=== PATIENT | female | born 2000 | race Caucasian/White ===

== ENCOUNTER 2024-06-16 08:59 | Emergency (ER) | payer OTHER ==
[~2024-06-16] VITALS: Ht 154.9 cm; Wt 90.7 kg
[~2024-06-16 08:59] MED LIST: CEPH500 PO; DOXY100 PO; VRAYLAR1.5 MG PO
[2024-06-16 10:23] LABS: BASOPHILS ABSOLUTE AUTO 0.05 K/mm3 (0.00-0.23); BASOPHILS PERCENT AUTO 1 % (0-2); EOSINOPHILS ABSOLUTE AUTO 0.09 K/mm3 (0.00-0.68); EOSINOPHILS PERCENT AUTO 1 % (0-6); Hematocrit 47.3 % (33.0-51.0); Hemoglobin 15.6 g/dL (11.5-16.0); IMMATURE GRAN ABSOLUTE AUTO 0.03 K/mm3 (0.00-0.10); IMMATURE GRAN PERCENT AUTO 0 % (0-1); LYMPHOCYTES ABSOLUTE AUTO 4.09 K/mm3 (0.84-5.20); LYMPHOCYTES PERCENT AUTO 43 % (21-46); MONOCYTES ABSOLUTE AUTO 0.51 K/mm3 (0.16-1.47); MONOCYTES PERCENT AUTO 5 % (4-13); Mean Corpuscular HGB 27.1 pg (26.0-34.0); Mean Corpuscular Volume 82 fL (80-100); Mean Platelet Volume 10.2 fL (9.1-12.4); NEUTROPHILS ABSOLUTE AUTO 4.81 K/mm3 (1.96-9.15); NEUTROPHILS PERCENT AUTO 50 % (41-73); Platelet Count 330 K/mm3 (150-400); RDW Coefficient Variation 14.8 % (11.7-14.2); RDW Standard Deviation 44.7 fL (35.1-46.3); Red Blood Cell Count 5.75 M/mm3 (3.80-5.20); White Blood Cell Count 9.58 K/mm3 (4.00-11.30)
[2024-06-16 10:47] LABS: Albumin, Blood 3.9 g/dL (3.4-5.0); Bilirubin, Total 0.4 mg/dL (0.1-1.0); Bun/Creatinine Ratio 9.1 (12.0-20.0); Calcium, Blood 9.5 mg/dL (8.5-10.1); Creatinine, Blood 0.77 mg/dL (0.40-1.00); Globulin, Blood 3.8 g/dL (2.2-4.0); Potassium, Blood 4.1 mmol/L (3.5-5.5); Total Protein, Blood 7.7 g/dL (6.4-8.2)
[2024-06-16] MEDS ORDERED: UBRELVY100 MG PO (11:14)
[2024-06-16] MEDS ORDERED: Mag Hydrox/AL Hydrox/Simeth 30 ML UDC PO ONE (11:25)
[2024-06-16] MEDS ORDERED: Lidocaine 2% 5 ML SDV EPI ONE (11:30)
[2024-06-16] MEDS ORDERED: Morphine Sulfate 4 MG/1 ML Injection IV ONE (11:55)
[2024-06-16 12:15] VITALS: BP 108/69
[2024-06-16] MEDS ORDERED: OMEP20ER PO (12:52)
== END 2024-06-16 13:03 | disposition home or self-care (01) ==
LOC: ER 08:59
PROVIDERS: Physician Assistant
DX: R10.13 Epigastric pain (principal); G43.909 Migraine, unspecified, not intractable, without status migrainosus; Z79.899 Other long term (current) drug therapy; Z91.048 Other nonmedicinal substance allergy status; Z88.8 Allergy status to other drugs, medicaments and biological substances
CPT/HCPCS: 74177; 76705; 80053; 83690; 84703; 85025; 96374; 99284-25; A9270; J2270; Q9967

== ENCOUNTER → 2024-06-28 | Outpatient (CLI) | payer OTHER ==
[~2024-06-28] MED LIST changes: +OMEP20ER PO; +UBRELVY100 MG PO
== END ==
LOC: LAB 16:42 → LAB SHORT 16:42
DX: R10.2 Pelvic and perineal pain (principal)
CPT/HCPCS: 87338

== ENCOUNTER → 2024-07-25 | Outpatient (CLI) | payer OTHER ==
[2024-07-25 20:54] LABS: Candida glabrata-krusei, PCR NOT DETECTED (NOT DETECT)
[2024-07-25 21:33] LABS: Bacterial Vaginosis PCR Positive (NEGATIVE); Candida Group, PCR DETECTED (NOT DETECT)
== END ==
LOC: LAB SHORT 14:36 → LAB 14:36
PROVIDERS: Nurse Practitioner Family
DX: N89.8 Other specified noninflammatory disorders of vagina (principal)
CPT/HCPCS: 87481; 87661; 87801

== ENCOUNTER → 2024-09-12 | Outpatient (CLI) | payer OTHER ==
[2024-09-12 10:08] LABS: Alanine Aminotransfer (ALT/SGP 45 U/L (12-78); Albumin, Blood 3.8 g/dL (3.4-5.0); Alk Phos 91 U/L (50-136); Anion Gap 10 mmol/L (3-11); Aspartate Aminotrans (AST/SGOT 24 U/L (12-37); Beta HCG, Quantitative, Serum <1 mIU/mL (0-3); Bilirubin, Total 0.2 mg/dL (0.1-1.0); Blood Urea Nitrogen 11 mg/dL (8-24); Bun/Creatinine Ratio 14.5 (12.0-20.0); CO2, Blood 26 mmol/L (21-32); Calcium, Blood 9.1 mg/dL (8.5-10.1); Chloride, Blood 108 mmol/L (98-108); Creatinine, Blood 0.76 mg/dL (0.40-1.00); Free Thyroxine 0.94 ng/dL (0.70-1.60); Glomerular Filtration Rate 112 (60-); Glucose, Blood 98 mg/dL (70-99); Potassium, Blood 3.8 mmol/L (3.5-5.5); Prolactin 25.1 ng/mL; Sodium, Blood 140 mmol/L (136-145); Total Protein, Blood 7.8 g/dL (6.4-8.2)
== END ==
LOC: LAB SHORT 08:05 → LAB 08:05
PROVIDERS: Nurse Practitioner Family
DX: N64.3 Galactorrhea not associated with childbirth (principal); R11.2 Nausea with vomiting, unspecified
CPT/HCPCS: 80053; 84146; 84439; 84443; 84702